=== PATIENT | male | born 1965 | race Caucasian/White ===

== ENCOUNTER 2022-01-03 11:06 | Emergency (ER) | payer BC ==
[2022-01-03 11:18] VITALS: BP 164/92; PULSE 67; RESP 16; TEMP 97.9; BMI 26.6
[2022-01-03] MEDS ORDERED: ACETAMINOPHEN 325 MG TABLET (FP) PO ONE (11:26)
[2022-01-03] MEDS ORDERED: ACETAMINOPHEN 325 MG TABLET (FP) ONE (11:28)
[2022-01-03 11:50] LABS: HEMATOCRIT 44.3 % (35.4-49); MCH 32.9 pg (25.7-33.7); MCHC 36.2 g/dl (32.0-35.9); MEAN PLT VOLUME 8.1 fl (7.5-11.1); PLATELET COUNT 173.3 10^3/uL (134-434); RBC 4.87 10^6/uL (4.00-5.60); RDW 13.2 % (11.9-15.9); WHITE BLOOD COUNT 5.8 10^3/uL (4.0-10.8)
[2022-01-03 11:57] LABS: ALBUMIN 4.3 g/dl (3.4-5.0); BILIRUBIN,TOTAL 0.9 mg/dl (0.2-1); CALCIUM 10.1 mg/dl (8.5-10)
[2022-01-03 12:24] LABS: URINE MUCUS 1+
[2022-01-03 12:51] LABS: PLATELET ESTIMATE ADEQUATE
== END 2022-01-03 12:57 | disposition home or self-care (01) ==
LOC: FER 11:06
DX: N20.0 Calculus of kidney (principal)
CPT/HCPCS: 36415; 74176-TC; 80053; 81003; 81015; 85025; 87086; 99284-25